=== PATIENT | female | born 1970 | race Hispanic/Latino ===

== ENCOUNTER 2022-10-14 19:30 | Emergency (ER) | payer OTHER ==
[~2022-10-14] VITALS: Ht 139.7 cm; Wt 75.3 kg
[2022-10-14] MEDS ORDERED: ONDANSETRON 4MG INJ IVP ONE (21:00)
[2022-10-14] MEDS ORDERED: 0.9% NACL 500ML IV.SOLN 500 ML IV ONE (21:00)
[2022-10-14] MEDS ORDERED: MORPHINE 4 MG SYG IVP ONE (21:00)
[2022-10-14 21:07] LABS: BASOPHILS % (AUTO) 0.1 % (0.0-5.0); EOSINOPHILS % (AUTO) 1.2 % (0.0-8.0); LYMPHOCYTES % (AUTO) 18.3 % (21.0-51.0); MEAN CORPUSCULAR HEMOGLOBIN 30.8 pg (27.0-33.0); MEAN CORPUSCULAR HGB CONC 33.1 g/dL (32.0-36.0); MEAN CORPUSCULAR VOLUME 93.3 fL (79-99); MONOCYTES % (AUTO) 6.4 % (3.0-13.0); NEUTROPHILS % (AUTO) 73.7 % (40.0-77.0); PLATELET COUNT (AUTO) 209 K/uL (130-400); RED BLOOD CELL COUNT(AUTO) 3.86 MIL/uL (4.00-5.50); RED CELL DISTRIBUTION WIDTH 12.4 % (11.0-15.5); WHITE BLOOD COUNT (AUTO) 8.6 K/uL (4.8-10.8)
[2022-10-14 21:16] LABS: CREATININE 0.7 mg/dL (0.5-1.5)
[2022-10-14 21:18] LABS: INR 0.93 (0.85-1.15); PROTHROMBIN TIME 9.8 SEC (9.6-11.6)
[2022-10-14 21:19] LABS: PARTIAL THROMBOPLASTIN TIME 27.1 SEC (26.3-35.5)
[2022-10-14 21:22] LABS: ALBUMIN 3.8 g/dL (3.5-5.0); TOTAL PROTEIN, SERUM 7.7 g/dL (6.0-8.3)
[2022-10-14] MEDS ORDERED: MORPHINE 4 MG SYG ONE (21:22)
[2022-10-14] MEDS ORDERED: ONDANSETRON 4MG INJ ONE (21:22)
[2022-10-14 21:43] LABS: APPEARANCE,URINE CLOUDY (CLEAR); BILIRUBIN,URINE NEGATIVE (NEGATIVE); COLOR,URINE LIGHT-YELLOW (YELLOW); GLUCOSE, URINE (UA) NEGATIVE (NEGATIVE); KETONES,URINE NEGATIVE (NEGATIVE); LEUKOCYTE ESTERASE ,URINE 250 Leu/uL (NEGATIVE); NITRATE,URINE NEGATIVE (NEGATIVE); OCCULT BLOOD,URINE NEGATIVE (NEGATIVE); PROTEIN,URINE NEGATIVE (NEGATIVE); UROBILINOGEN,URINE 0.2 mg/dL (0.2-1.0)
[2022-10-14 21:57] LABS: BACTERIA,URINE MOD /HPF (None Seen); MUCUS,URINE RARE LPF (None Seen); SQUAMOUS EPITHELIAL CELL,UR FEW /HPF (0-2)
[2022-10-14] MEDS ORDERED: CEFTRIAXONE 1G VIAL ONE (22:38)
[2022-10-14] MEDS ORDERED: CEFTRIAXONE 1G VIAL IVP ONE (23:00)
[2022-10-14] MEDS ORDERED: ACET-2079 PO (23:25)
[2022-10-15 00:21] VITALS: BP 138/74
== END 2022-10-15 00:38 | disposition home or self-care (01) ==
LOC: EDH 19:30
DX: T14.8XXA Other injury of unspecified body region, initial encounter (principal); E11.9 Type 2 diabetes mellitus without complications; E78.00 Pure hypercholesterolemia, unspecified; W18.39XA Other fall on same level, initial encounter; Y93.89 Activity, other specified; Y92.89 Other specified places as the place of occurrence of the external cause; Y99.8 Other external cause status
CPT/HCPCS: 99285; 72131; 96374; 71045; 96375; 84484; 80053; 85025; 85610; 85730; 87088; 81001; 36415; 72128; 93005; J0696; J2405; J2270